=== PATIENT | male | born 1980 | race African-American/Black ===

== ENCOUNTER 2021-11-18 12:15 | Emergency (ER) | payer OTHER ==
[~2021-11-18] VITALS: Ht 177.8 cm; Wt 82.0 kg
[2021-11-18] MEDS ORDERED: SILVER SULFADIAZINE 1 % TOPICAL CREAM 50GM TOP ONE (12:30)
[2021-11-18 12:32] VITALS: BP 117/86
[2021-11-18] MEDS ORDERED: IBUP800T27 PO (13:01)
== END 2021-11-18 13:14 | disposition home or self-care (01) ==
LOC: ER 12:15
DX: T23.232A Burn of second degree of multiple left fingers (nail), not including thumb, initial encounter (principal); F17.210 Nicotine dependence, cigarettes, uncomplicated; Z79.1 Long term (current) use of non-steroidal anti-inflammatories (NSAID); X08.8XXA Exposure to other specified smoke, fire and flames, initial encounter; Y93.89 Activity, other specified; Y92.89 Other specified places as the place of occurrence of the external cause; Y99.8 Other external cause status
CPT/HCPCS: 16020